=== PATIENT | male | born 1945 | race Two or more races ===

== ENCOUNTER 2016-11-02 19:36 | Emergency (ER) | payer MEDICARE, OTHER ==
[2016-11-02 19:48] VITALS: BP 113/84
--- NOTE | 2016-11-03 06:21 | ED ---
Fatou Simeon Nilda, scribed for Rolando Dumont MD on 11/03/16 at 0018 . Lower Extremity - HPI Summary HPI Summary: Pt is a 71 y.o M presenting to [facility] from [place] accompanied by family member with a chief complaint of left foot swelling that began 3 days ago. Symptoms are aggravated and alleviated by nothing. Pain severity rated as 0/10. Patient reports being able to ambulate. He denies left foot pain, malaise, abdominal pain, and LLE pain. 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 - History of Current Complaint Chief Complaint: EDExtremityLower Stated Complaint: LT FOOT SWOLLEN Time Seen by Provider: 11/02/16 23:55 Hx Obtained From: Patient Onset/Duration: Days - 3 Days Severity Currently: None Pain Intensity: 0 Pain Scale Used: 0-10 Numeric Timing: Constant, Lasting Days Location: Other - LLE Associated Signs And Symptoms: Positive: Swelling Aggravating Factor(s): Nothing Alleviating Factor(s): Nothing Able to Bear Weight: Yes - Allergies/Home Medications Allergies/Adverse Reactions: Allergies Allergy/AdvReac Type Severity Reaction Status Date / Time No Known Allergies Allergy Verified 11/02/16 19:44 PMH/Surg Hx/FS Hx/Imm Hx Endocrine/Hematology History: Reports: Hx Anticoagulant Therapy - baby ASA Denies: Hx Blood Disorders, Hx Blood Transfusions, Hx Bone Marrow Disease, Hx Diabetes, Hx Systemic Lupus Erythematosus, Hx Sickle Cell Disease, Hx Thyroid Disease, Hx Anemia, Hx Unexplained Bleeding, Other Endocrine/ Hematological Disorders Cardiovascular History: Reports: Hx Coronary Artery Disease, Hx Hypercholesterolemia, Hx Valvular Heart Disease, Other Cardiovascular Problems/ Disorders - Heart Valve repair since 2007 Denies: Hx Aneurysm, Hx Angina, Hx Angioplasty, Hx Auto Implanted Cardiovert Defib, Hx Cardiac Arrest, Hx Cardiomegaly, Hx Congenital Heart Disease, Hx Congestive Heart Failure, Hx Deep Vein Thrombosis, Hx Hypotension, Hx Hypertension, Hx Pacemaker/ICD, Hx Peripheral Vascular Disease, Hx Rheumatic Fever, Hx Syncope Respiratory History: Denies: Hx Asthma, Hx Chronic Bronchitis, Hx Chronic Obstructive Pulmonary Disease (COPD), Hx Cystic Fibrosis, Hx Lung Cancer, Hx Pleural Effusion, Hx Pneumonia, Hx Pulmonary Edema, Hx Pulmonary Embolism, Hx Seasonal Allergies, Hx Sleep Apnea, Other Respiratory Problems/Disorders GI History: Denies: Hx Ulcer, Other GI Disorders Musculoskeletal History: Denies: Hx Arthritis, Hx Back Problems, Hx Bursitis, Hx Congenital Bone Abnormalities, Hx Fibromyalgia, Hx Gout, Hx Orthopedic Injury, Hx Osteoporosis, Hx Scoliosis, Hx Tendonitis Sensory History: Reports: Hx Contacts or Glasses Denies: Hx Cataracts, Hx Eye Injury, Hx Eye Prosthesis, Hx Glaucoma, Hx Vision Problem, Hx Deafness, Hx Hearing Aid, Hx Hearing Problem, Other Sensory Impairments Opthamlomology History: Reports: Hx Contacts or Glasses Denies: Hx Cataracts, Hx Eye Injury, Hx Eye Prosthesis, Hx Glaucoma, Hx Vision Problem, Other Sensory Impairments Neurological History: Reports: Other Neuro Impairments/Disorders - L SIDED WEAKNESS DUE TO BRAIN INJURY Psychiatric History: Reports: Hx Depression Denies: Hx Anxiety, Hx Attention Deficit Hyperactivity Disorder, Hx Eating Disorder, Hx Panic Disorder, Hx Post Traumatic Stress Disorder, Hx Inpatient Treatment, Hx Community Mental Health Tx, Hx Schizophrenia, Hx Bipolar Disorder , Hx Suicide Attempt, Hx of Violent Episodes Against Others, Hx Substance Abuse , Other Psychiatric Issues/Disorders - Cancer History Hx Chemotherapy: No Hx Radiation Therapy: No - Surgical History Surgery Procedure, Year, and Place: Heart Valve repair 2007. Brain surgery 1990 ( FROM TRAUMATIC BRAIN INJURY). TONSILS & ADNOIDS - 1950 Hx Anesthesia Reactions: No - Immunization History Date of Tetanus Vaccine: 1 year ago Date of Influenza Vaccine: 2012 Infectious Disease History: No Infectious Disease History: Denies: Hx Clostridium Difficile, Hx Hepatitis, Hx Human Immunodeficiency Virus (HIV), Hx Shingles, Hx Tuberculosis, Traveled Outside the [place] in Last 30 Days - Family History Known Family History: Negative: Hypertension, Diabetes - Social History Alcohol Use: Rare Substance Use Type: Reports: None Smoking Status (MU): Former Smoker Review of Systems Positive: Other - negative: malaise Negative: Abdominal Pain Positive: Edema - left foot swollen, Other - left arm immobile and contracted; negative: left foot pain, LLE pain. All Other Systems Reviewed And Are Negative: Yes Physical Exam - Summary Physical Exam Summary: General: well-appearing, no pain distress Skin: warm, color reflects adequate perfusion, dry Head: normal Eyes: EOMI, ALEX ENT: normal Neck: supple, nontender Respiratory: CTA, breath sounds present Cardiovascular: RRR, dorsalis pedis pulses 2+ Abdomen: soft, nontender Bowel: present Musculoskeletal: Left arm flexed in contraction; FROM RUE and RLE; LLE effort against gravity and drift; (+) edema in left foot that is cold to touch. Neurological: normal, sensory/motor intact, A&O x3 Psychological: affect/mood appropriate Triage Information Reviewed: Yes Vital Signs On Initial Exam: Initial Vitals Temp Pulse Resp BP Pulse Ox 97.7 F 67 18 113/84 96 11/02/16 19:38 11/02/16 19:38 11/02/16 19:38 11/02/16 19:38 11/02/16 19:38 Vital Signs Reviewed: Yes - Stowell Coma Scale Coma Scale Total: 15 Diagnostics - Vital Signs Vital Signs Temp Pulse Resp BP Pulse Ox 11/02/16 19:38 97.7 F 67 18 113/84 96 - Laboratory Lab Statement: Any lab studies that have been ordered have been reviewed, and results considered in the medical decision making process. - Ultrasound No standard instances Ultrasound Interpretation: Positive (See Comments) Ultrasound Interpretation Completed By: Radiologist - Doppler Venous Study (LLE) : Diffuse atherosclerotic plaque without any definite stenosis. ED Physician reviewed report and agrees. Lower Extremity Course/Dx - Course Course Of Treatment: NO STENOSIS SEEN ON ARTERIAL STUDY. NO DVT REPORTED ON US SCREENING. 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 WHEN QUESTIONED, HE REPORTS THE LLE SWELLING HAS BEEN GOING ON FOR SOME TIME. HE DENIES ANY PAIN IN THE LLE. IT APPEARS TO BE VENOUS INSUFFICIENCY DUE TO NEUOGENIC CAUSE. THIS WAS ALL DISCUSSED WITH THE PATIENT AND HIS FRIEND. F/U PMD; RETURN IF WORSE. NO CRITICAL CARE TIME. - Diagnoses Provider Diagnoses: Leg edema, left - Physician Notifications Discussed Care Of Patient With: Reno Ta - Hospitalist Time Discussed With Above Provider: 00:57 Instructed by Provider To: MD Will See In ED - Discussed imaging results which show no evidence of DVT. Results show normal vasculature. Upon discussing with patient, swelling has been a problem for some time. Physcians believe issue may be neurogenic. There is good blood flow but slower vascular return. Patient experiencing no pain. Discharge - Discharge Plan Condition: Stable Disposition: HOME Patient Education Materials: Leg Edema (ED) Referrals: Norm Nichols MD [Primary Care Provider] - Additional Instructions: FOLLOW UP WITH YOUR DOCTOR. NO ARTERIAL OR VENOUS BLOCKAGE WAS SEEN. ELEVATE THE LEG WHEN POSSIBLE. INCREASE YOUR ACTIVITY/WALKING TO INCREASE BLOOD FLOW. TALK WITH YOU DOCTOR ABOUT COMPRESSION STOCKINGS. RETURN TO THE EMERGENCY DEPARTMENT FOR ANY WORSENING OF YOUR CONDITION; PAIN, INCREASED SWELLING OR QUESTIONS OR CONCERNS. The documentation as recorded by the Fatou jose Nilda accurately reflects the service I personally performed and the decisions made by me, Rolando Dumont MD.
--- NOTE | 2016-11-03 07:48 | RAD ---
INDICATION: Left lower extremity claudication. COMPARISON: None. TECHNIQUE: Chawla scale, color Doppler, and spectral analysis utilized to image the left lower extremity arteries. Flow velocities were determined at each visualized artery. REPORT: The left common femoral artery, proximal femoral profundus, superficial femoral artery, popliteal artery and infrapopliteal arteries exhibit patency. There is calcified atherosclerosis seen throughout the visualized arteries, becoming more severe in the infrapopliteal distribution. The arterial flow velocities and ratios of the femoral-popliteal arteries are within normal limits. There is no abrupt transition and velocities to indicate significant stenosis. There are no pathologically dilated arteries visualized. IMPRESSION: Sonographic findings are consistent with calcified atherosclerosis without identification of focal occlusion or pathologically elevated flow velocities indicating stenosis.
== END 2016-11-03 01:09 | disposition home or self-care (01) ==
LOC: ED 19:36
DX: R60.0 Localized edema (principal); Z79.01 Long term (current) use of anticoagulants; Z79.82 Long term (current) use of aspirin; Z86.79 Personal history of other diseases of the circulatory system; Z87.820 Personal history of traumatic brain injury; Z87.891 Personal history of nicotine dependence
CPT/HCPCS: 99282

== ENCOUNTER 2017-09-11 23:02 | Emergency (ER) | payer MEDICARE, OTHER ==
--- NOTE | 2017-09-11 23:59 | ED ---
Medical Screening - HPI Summary HPI Summary: Patient from assisted living received his roommates medications in addition to his own tonight at 10 PM. Patient was given nonprescribed meds of diazepam 5 mg , baclofen 40 mg, Zanaflex 6 mg tonight. Patient states he feels at baseline. Denies any symptoms or pain - History of Current Complaint Chief Complaint: EDGeneral Stated Complaint: MEDICATION ERROR Time Seen by Provider: 09/11/17 23:19 Associated Signs and Symptoms: Negative PMH/Surg Hx/FS Hx/Imm Hx Endocrine/Hematology History: Reports: Hx Anticoagulant Therapy - baby ASA Denies: Hx Blood Disorders, Hx Blood Transfusions, Hx Bone Marrow Disease, Hx Diabetes, Hx Systemic Lupus Erythematosus, Hx Sickle Cell Disease, Hx Thyroid Disease, Hx Anemia, Hx Unexplained Bleeding, Other Endocrine/ Hematological Disorders Cardiovascular History: Reports: Hx Coronary Artery Disease, Hx Hypercholesterolemia, Hx Valvular Heart Disease, Other Cardiovascular Problems/ Disorders - Heart Valve repair since 2007 Denies: Hx Aneurysm, Hx Angina, Hx Angioplasty, Hx Auto Implanted Cardiovert Defib, Hx Cardiac Arrest, Hx Cardiomegaly, Hx Congenital Heart Disease, Hx Congestive Heart Failure, Hx Deep Vein Thrombosis, Hx Hypotension, Hx Hypertension, Hx Pacemaker/ICD, Hx Peripheral Vascular Disease, Hx Rheumatic Fever, Hx Syncope Respiratory History: Denies: Hx Asthma, Hx Chronic Bronchitis, Hx Chronic Obstructive Pulmonary Disease (COPD), Hx Cystic Fibrosis, Hx Lung Cancer, Hx Pleural Effusion, Hx Pneumonia, Hx Pulmonary Edema, Hx Pulmonary Embolism, Hx Seasonal Allergies, Hx Sleep Apnea, Other Respiratory Problems/Disorders GI History: Denies: Hx Ulcer, Other GI Disorders Musculoskeletal History: Denies: Hx Arthritis, Hx Back Problems, Hx Bursitis, Hx Congenital Bone Abnormalities, Hx Fibromyalgia, Hx Gout, Hx Orthopedic Injury, Hx Osteoporosis, Hx Scoliosis, Hx Tendonitis Sensory History: Reports: Hx Contacts or Glasses Denies: Hx Cataracts, Hx Eye Injury, Hx Eye Prosthesis, Hx Glaucoma, Hx Vision Problem, Hx Deafness, Hx Hearing Aid, Hx Hearing Problem, Other Sensory Impairments Opthamlomology History: Reports: Hx Contacts or Glasses Denies: Hx Cataracts, Hx Eye Injury, Hx Eye Prosthesis, Hx Glaucoma, Hx Vision Problem, Other Sensory Impairments Neurological History: Reports: Other Neuro Impairments/Disorders - L SIDED WEAKNESS DUE TO BRAIN INJURY Psychiatric History: Reports: Hx Depression Denies: Hx Anxiety, Hx Attention Deficit Hyperactivity Disorder, Hx Eating Disorder, Hx Panic Disorder, Hx Post Traumatic Stress Disorder, Hx Inpatient Treatment, Hx Community Mental Health Tx, Hx Schizophrenia, Hx Bipolar Disorder , Hx Suicide Attempt, Hx of Violent Episodes Against Others, Hx Substance Abuse , Other Psychiatric Issues/Disorders - Cancer History Hx Chemotherapy: No Hx Radiation Therapy: No - Surgical History Surgery Procedure, Year, and Place: Heart Valve repair 2007. Brain surgery 1990 ( FROM TRAUMATIC BRAIN INJURY). TONSILS & ADNOIDS - 1950 Hx Anesthesia Reactions: No - Immunization History Date of Tetanus Vaccine: 1 year ago Date of Influenza Vaccine: 2012 Infectious Disease History: No Infectious Disease History: Denies: Hx Clostridium Difficile, Hx Hepatitis, Hx Human Immunodeficiency Virus (HIV), Hx Shingles, Hx Tuberculosis, Traveled Outside the [place] in Last 30 Days - Family History Known Family History: Negative: Hypertension, Diabetes - Social History Alcohol Use: Rare Substance Use Type: Reports: None Smoking Status (MU): Former Smoker Review of Systems Constitutional: Negative Eyes: Negative ENT: Negative Cardiovascular: Negative Respiratory: Negative Gastrointestinal: Negative Genitourinary: Negative Musculoskeletal: Negative Skin: Negative Neurological: Negative Psychological: Normal All Other Systems Reviewed And Are Negative: Yes Physical Exam - Summary Physical Exam Summary: Neuro exam normal. Patient alert and oriented. Vital signs at baseline per prior records Triage Information Reviewed: Yes Vital Signs On Initial Exam: Initial Vitals Temp Pulse Resp BP Pulse Ox 97.6 F 55 20 96/60 95 09/11/17 23:14 09/11/17 23:14 09/11/17 23:14 09/11/17 23:14 09/11/17 23:14 Vital Signs Reviewed: Yes Appearance: Positive: Well-Appearing Skin: Positive: Warm Head/Face: Positive: Normal Head/Face Inspection Eyes: Positive: Normal Neck: Positive: Supple Respiratory/Lung Sounds: Positive: Clear to Auscultation Cardiovascular: Positive: Normal Abdomen Description: Positive: Nontender Musculoskeletal: Positive: Normal Neurological: Positive: Normal Psychiatric: Positive: Normal AVPU Assessment: Alert - [place] Coma Scale Best Eye Response: 4 - Spontaneous Best Motor Response: 6 - Obeys Commands Best Verbal Response: 5 - Oriented Coma Scale Total: 15 Diagnostics - Vital Signs Vital Signs Temp Pulse Resp BP Pulse Ox 09/11/17 23:14 97.6 F 55 20 96/60 95 - Laboratory Result Diagrams: 09/11/17 23:49 Lab Statement: Any lab studies that have been ordered have been reviewed, and results considered in the medical decision making process. - EKG 1 Cardiac Rate: Bradycardia EKG Rhythm: Sinus Bradycardia ST Segment: Non-Specific - T-wave inversion leads 3, V4, V5, V6. EKG Interpretation: supraventricular bigeminy, right bundle branch block, T- wave inversion EKG Comparison: Other - Change from EKG 2016 Course/Dx - Course Course Of Treatment: Patient from assisted living received his roommates medications in addition to his own tonight at 10 PM. Patient was given nonprescribed meds of diazepam 5 mg, baclofen 40 mg, Zanaflex 6 mg tonight. Patient states he feels at baseline. Denies any symptoms or pain. Neuro exam normal. Patient alert and oriented. HR up and down. Other vital signs at baseline per prior records. Patient observed for [address] patient with Dr. Quinteros recommends discharge home to assisted living at this time. - Diagnoses Provider Diagnoses: Medication administered in error Discharge - Sign-Out/Discharge Documenting (check all that apply): Patient Departure - Discharge Plan Condition: Stable [facility]position[facility] Referrals: Kaia Vela MD [Primary Care Provider] - Additional Instructions: Follow-up with primary care. Return to the ED for any new or worsening symptoms - Billing Disposition and Condition Condition: STABLE Disposition: [facility]
[2017-09-12 00:18] LABS: EGFR Non-African American 97.3 (>60)
[2017-09-12 02:58] VITALS: BP 96/53
== END 2017-09-12 03:00 ==
LOC: ED 23:02
DX: T42.4X1A Poisoning by benzodiazepines, accidental (unintentional), initial encounter (principal); T42.8X1A Poisoning by antiparkinsonism drugs and other central muscle-tone depressants, accidental (unintentional), initial encounter; Y92.9 Unspecified place or not applicable; R00.1 Bradycardia, unspecified; R00.8 Other abnormalities of heart beat; I45.10 Unspecified right bundle-branch block; Z79.82 Long term (current) use of aspirin; Z87.891 Personal history of nicotine dependence
CPT/HCPCS: 36415; 80053; 93005; 99284

== ENCOUNTER 2019-10-10 11:14 | Inpatient (IN) ==
[2019-10-10] MEDS ORDERED: Cefepime 2 GM in NS 0.9% 50 ML 50 ML IVPB ONE (11:16)
[2019-10-10] MEDS ORDERED: Levofloxacin 750 MG IVPREMIX 750 MG/150 ML BAG IVPB ONE (11:16)
[2019-10-10] MEDS ORDERED: Cefepime 2 GM in Dextrose 2 GM/50 ML BAG IV ONE (11:31)
[2019-10-10 11:46] LABS: ABS Lymphocytes 1.1 10^3/ul (1.0-4.8); ABS Neutrophils 6.8 10^3/ul (1.5-7.7); Eosinophil % 0.1 %; Hematocrit 39 % (42-52); Hemoglobin 13.1 g/dL (14.0-18.0); Lymphocyte % 12.9 %; Mean Corpuscular HGB Conc 34 g/dL (31-36); Mean Corpuscular Hemoglobin 32 pg (27-31); Mean Corpuscular Volume 94 fL (80-94); Mean Platelet Volume 7.6 fL (7.4-10.4); Platelet Count 157 10^3/uL (150-450); Red Blood Count 4.16 10^6 /uL (4.18-5.48); Red Cell Distribution Width 15 % (10-15); White Blood Count 8.9 10^3/uL (3.5-10.8)
[2019-10-10 11:59] LABS: Activated Partial Thrombo Time 30.5 seconds (26.0-38.0); INR 1.16 (0.82-1.09)
[2019-10-10 12:04] LABS: Albumin/Globulin Ratio 1.3 (1-3); C Reactive Protein 231.63 mg/L (<8.01); Calcium 9.7 mg/dL (8.6-10.3); EGFR African American 87.9 (>60); EGFR Non-African American 72.6 (>60); Globulin 3.2 g/dL (2-4); Potassium 4.2 mmol/L (3.5-5.0); Total Bilirubin 0.8 mg/dL (0.2-1.0); Total Protein 7.2 g/dL (6.4-8.9)
[2019-10-10] MEDS ORDERED: Iodixanol (CONTRAST) 320 MG/ML 100 ML SDV IV ONE (12:12)
[2019-10-10 14:29] LABS: Urine Appearance Clear; Urine Bilirubin Negative (Negative); Urine Blood Negative (Negative); Urine Color Yellow; Urine Glucose Negative (Negative); Urine Ketones Trace (Negative); Urine Nitrite Negative (Negative); Urine Protein Negative (Negative); Urine Specific Gravity 1.041 (1.010-1.030); Urine Urobilinogen Positive (Negative)
[2019-10-10] MEDS ORDERED: Senna TAB 8.6 mg TAB PO PRN (15:02)
[2019-10-10] MEDS ORDERED: Ondansetron 4 mg VIAL 2 MG/ML 2 ml VIAL IV PRN (15:02)
[2019-10-10] MEDS ORDERED: metroNIDAZOLE IV 500 MG/100ML 500 MG/100 ML BAG IVPB SCH (16:00)
[2019-10-10] MEDS: NS 0.9% 1000 ml BAG 1,000 ML IV SCH (16:43)
[2019-10-10] MEDS: Enoxaparin 40 MG/0.4 ML SYR SUBCUT SCH (16:51)
[2019-10-10] MEDS ORDERED: Zosyn per Pharmacy NOTE FOLLOW UP SCH (17:00)
[2019-10-10] MEDS: Carbidopa/Levodop 25/100 MG TAB PO SCH (22:19)
[2019-10-10] MEDS ORDERED: cefTRIAXone 1 gm/50 mL NS BAG 1 GM/50 ML BAG IVPB SCH (23:00)
[2019-10-11] MEDS ORDERED: LORazepam 2 mg VIAL 1 ml IV PUSH ONE (04:11)
[2019-10-11] MEDS ORDERED: Lorazepam PYXIS KEY PRN (04:11)
[2019-10-11] MEDS: NS 0.9% 1000 ml BAG 1,000 ML IV SCH (06:23)
[2019-10-11 07:41] LABS: Hematocrit 36 % (42-52); Hemoglobin 12.2 g/dL (14.0-18.0); Mean Corpuscular HGB Conc 34 g/dL (31-36); Mean Corpuscular Hemoglobin 32 pg (27-31); Mean Corpuscular Volume 94 fL (80-94); Red Cell Distribution Width 15 % (10-15)
[2019-10-11] MEDS ORDERED: Piperacillin/Tazobac ADVAN 3.375 GM in NS 0.9% 100 ml BAG 100 ML IVPB ONE (08:00)
[2019-10-11 08:10] LABS: CO2 Carbon Dioxide 21 mmol/L (22-32); Calcium 8.8 mg/dL (8.6-10.3); Chloride 107 mmol/L (101-111); Sodium 138 mmol/L (135-145)
[2019-10-11 08:16] LABS: BUN/Creatinine Ratio 31.1 (8-20); Blood Urea Nitrogen 28 mg/dL (6-24); EGFR African American 99.3 (>60); Glucose 76 mg/dL (70-100)
[2019-10-11 08:23] LABS: Anion Gap 10 mmol/L (2-11)
[2019-10-11 08:24] LABS: Platelet Count Platelets clumped. 10^3/uL (150-450)
[2019-10-11 08:27] LABS: ABS Eosinophils 0.1 10^3/ul (0-0.6); ABS Lymphocytes 1.7 10^3/ul (1.0-4.8); ABS Monocytes 1.4 10^3/ul (0-0.8); ABS Neutrophils 5.5 10^3/ul (1.5-7.7); Eosinophil % 1.5 %; Lymphocyte % 19.6 %; Nucleated Red Blood Cells % 0.1; White Blood Count 8.8 10^3/uL (3.5-10.8)
[2019-10-11] MEDS: ZOSYN 3.375 GM Q8H per EXTENDED INFUSION IV SCH ×2 (11:58→19:22)
[2019-10-11] MEDS: Carbidopa/Levodop 25/100 MG TAB PO SCH ×3 (11:58→21:20)
[2019-10-11] MEDS: Multivitamins/Minerals TAB PO SCH (11:58)
[2019-10-11] MEDS: Aspirin EC 81 mg TAB.EC (enteric coated) PO SCH (11:58)
[2019-10-11 15:41] LABS: C Reactive Protein 185.09 mg/L (<8.01)
[2019-10-11] MEDS: Enoxaparin 40 MG/0.4 ML SYR SUBCUT SCH (16:51)
[2019-10-12] MEDS: NS 0.9% 1000 ml BAG 1,000 ML IV SCH (03:13)
[2019-10-12] MEDS: ZOSYN 3.375 GM Q8H per EXTENDED INFUSION IV SCH ×2 (03:38→12:25)
[2019-10-12 06:20] LABS: ABS Eosinophils 0.2 10^3/ul (0-0.6); ABS Lymphocytes 1.2 10^3/ul (1.0-4.8); ABS Monocytes 0.7 10^3/ul (0-0.8); ABS Neutrophils 3.6 10^3/ul (1.5-7.7); Eosinophil % 3.6 %; Hematocrit 36 % (42-52); Hemoglobin 12.4 g/dL (14.0-18.0); Lymphocyte % 20.9 %; Mean Corpuscular HGB Conc 34 g/dL (31-36); Mean Corpuscular Hemoglobin 32 pg (27-31); Mean Corpuscular Volume 92 fL (80-94); Mean Platelet Volume 7.7 fL (7.4-10.4); Nucleated Red Blood Cells % 0.1; Platelet Count 175 10^3/uL (150-450); Red Blood Count 3.92 10^6 /uL (4.18-5.48); Red Cell Distribution Width 14 % (10-15); White Blood Count 5.8 10^3/uL (3.5-10.8)
[2019-10-12] MEDS: Aspirin EC 81 mg TAB.EC (enteric coated) PO SCH (08:56)
[2019-10-12] MEDS: Carbidopa/Levodop 25/100 MG TAB PO SCH ×3 (08:56→20:31)
[2019-10-12] MEDS: Multivitamins/Minerals TAB PO SCH (08:56)
[2019-10-12] MEDS: Enoxaparin 40 MG/0.4 ML SYR SUBCUT SCH (17:40)
[2019-10-12] MEDS: Amoxicillin/Clavul 500/125 TAB (Augmentin 500 mg tab) PO SCH (20:30)
[2019-10-13] MEDS: Aspirin EC 81 mg TAB.EC (enteric coated) PO SCH (09:20)
[2019-10-13] MEDS: Amoxicillin/Clavul 500/125 TAB (Augmentin 500 mg tab) PO SCH (09:20)
[2019-10-13] MEDS: Carbidopa/Levodop 25/100 MG TAB PO SCH (09:20)
[2019-10-13] MEDS: Multivitamins/Minerals TAB PO SCH (09:21)
[2019-10-13 12:01] VITALS: BP 109/55
== END 2019-10-13 14:20 | disposition home or self-care (01) | DRG 177 ==
LOC: ED 11:14 → MED 15:02
PROVIDERS: ADMIT Internal Medicine; ATTEND Internal Medicine

== ENCOUNTER 2020-02-21 17:32 | Inpatient (IN) ==
[2020-02-21] MEDS ORDERED: NS 0.9% 1000 ml BAG 1,000 ML IV ONE (18:15)
[2020-02-21 18:20] LABS: Urine Appearance Cloudy; Urine Bilirubin Negative (Negative); Urine Blood Negative (Negative); Urine Color Amber; Urine Glucose Negative (Negative); Urine Ketones Trace (Negative); Urine Nitrite Negative (Negative); Urine Protein Negative (Negative); Urine Specific Gravity 1.021 (1.010-1.030); Urine Urobilinogen Positive (Negative)
[2020-02-21 18:47] LABS: ABS Eosinophils 0.1 10^3/ul (0-0.6); ABS Lymphocytes 0.8 10^3/ul (1.0-4.8); ABS Monocytes 0.4 10^3/ul (0-0.8); ABS Neutrophils 2.7 10^3/ul (1.5-7.7); Eosinophil % 2.2 %; Hematocrit 37 % (42-52); Hemoglobin 12.4 g/dL (14.0-18.0); Lymphocyte % 20.4 %; Mean Corpuscular HGB Conc 33 g/dL (31-36); Mean Corpuscular Hemoglobin 32 pg (27-31); Mean Corpuscular Volume 95 fL (80-94); Red Blood Count 3.92 10^6 /uL (4.18-5.48); Red Cell Distribution Width 17 % (10-15); White Blood Count 3.9 10^3/uL (3.5-10.8)
[2020-02-21] MEDS ORDERED: Vancomycin 1,000 MG in NS 0.9% 250 ml 250 ML IVPB ONE (18:51)
[2020-02-21 18:52] LABS: INR 1.08 (0.82-1.09)
[2020-02-21] MEDS ORDERED: Lactated Ringers 1000 ml BAG 1,000 ML IV SCH (19:00)
[2020-02-21] MEDS ORDERED: Vancomycin per Pharmacy 1 EA NOTE FOLLOW UP SCH (19:00)
[2020-02-21 19:07] LABS: Albumin 3.5 g/dL (3.2-5.2); Albumin/Globulin Ratio 1.5 (1-3); BUN/Creatinine Ratio 47.2 (8-20); EGFR African American 128.1 (>60); EGFR Non-African American 105.9 (>60); Globulin 2.4 g/dL (2-4); Total Bilirubin 0.4 mg/dL (0.2-1.0); Total Protein 5.9 g/dL (6.4-8.9)
[2020-02-21] MEDS ORDERED: Piperacillin/Tazobac ADVAN 3.375 GM in NS 0.9% 100 ml BAG 100 ML IV ONE (19:10)
[2020-02-21 19:50] LABS: Mean Platelet Volume 8.6 fL (7.4-10.4); Platelet Count 58 10^3/uL (150-450)
[2020-02-21] MEDS ORDERED: Zosyn per Pharmacy NOTE FOLLOW UP SCH (20:00)
[2020-02-21] MEDS ORDERED: Polyethylene Glycol 3350 17 GM PACKET PO PRN (20:25)
[2020-02-21 20:46] LABS: TSH Ultra Thyroid Stim Horm 4.22 mcIU/mL (0.34-5.60)
[2020-02-21] MEDS: Carbidopa/Levodop 25/100 MG TAB PO SCH (21:02)
[2020-02-21] MEDS: ZOSYN 3.375 GM Q8H per EXTENDED INFUSION IV SCH (23:34)
[2020-02-22 04:26] LABS: ABS Lymphocytes 0.7 10^3/ul (1.0-4.8); ABS Monocytes 0.3 10^3/ul (0-0.8); ABS Neutrophils 3.5 10^3/ul (1.5-7.7); Eosinophil % 0.8 %; Hematocrit 36 % (42-52); Hemoglobin 12.2 g/dL (14.0-18.0); Lymphocyte % 15.6 %; Mean Corpuscular HGB Conc 34 g/dL (31-36); Mean Corpuscular Hemoglobin 32 pg (27-31); Mean Corpuscular Volume 94 fL (80-94); Nucleated Red Blood Cells % 0.1; Platelet Count 70 10^3/uL (150-450); Red Blood Count 3.86 10^6 /uL (4.18-5.48); Red Cell Distribution Width 16 % (10-15); White Blood Count 4.5 10^3/uL (3.5-10.8)
[2020-02-22 04:32] LABS: BUN/Creatinine Ratio 36.8 (8-20); Calcium 9.1 mg/dL (8.6-10.3); EGFR Non-African American 85.1 (>60); Potassium 4.4 mmol/L (3.5-5.0)
[2020-02-22] MEDS: ZOSYN 3.375 GM Q8H per EXTENDED INFUSION IV SCH ×3 (08:02→23:34)
[2020-02-22] MEDS: Vancomycin 1000 MG in NS 0.9% 250 ML IVPB SCH ×2 (08:05→21:22)
[2020-02-22] MEDS: Lactated Ringers 1000 ml BAG 1,000 ML IV SCH ×3 (08:08→17:10)
[2020-02-22 08:16] LABS: Magnesium 1.7 mg/dL (1.9-2.7); Phosphorus 2.2 mg/dL (2.5-5.0)
[2020-02-22] MEDS ORDERED: Donepezil HCL 10 mg TAB (NF) PO SCH (09:00)
[2020-02-22] MEDS: Carbidopa/Levodop 25/100 MG TAB PO SCH ×3 (09:25→21:22)
[2020-02-22] MEDS: Enoxaparin 40 MG/0.4 ML SYR SUBCUT SCH (11:53)
[2020-02-23 05:40] LABS: EGFR African American 83.8 (>60); EGFR Non-African American 69.3 (>60)
[2020-02-23] MEDS: ZOSYN 3.375 GM Q8H per EXTENDED INFUSION IV SCH ×3 (07:20→23:33)
[2020-02-23] MEDS ORDERED: Vancomycin Trough Check NOTE FOLLOW UP ONE (07:30)
[2020-02-23] MEDS ORDERED: Magnesium Sulf 4 GM/100 ML IV 4,000 MG/100 ML BAG IVPB ONE (07:57)
[2020-02-23 08:19] LABS: Magnesium 1.6 mg/dL (1.9-2.7)
[2020-02-23] MEDS: Vancomycin 1000 MG in NS 0.9% 250 ML IVPB SCH (08:21)
[2020-02-23 08:33] LABS: C Reactive Protein 23.31 mg/L (<8.01)
[2020-02-23] MEDS: Enoxaparin 40 MG/0.4 ML SYR SUBCUT SCH (09:06)
[2020-02-23] MEDS: Carbidopa/Levodop 25/100 MG TAB PO SCH ×3 (09:09→20:20)
[2020-02-23] MEDS: Lactated Ringers 1000 ml BAG 1,000 ML IV SCH (09:59)
[2020-02-23 20:51] LABS: B garinii/B afzelii PCR Negative (Negative); B mayonii PCR Negative (Negative)
[2020-02-24 05:24] LABS: ABS Eosinophils 0.1 10^3/ul (0-0.6); ABS Monocytes 0.7 10^3/ul (0-0.8); ABS Neutrophils 4.7 10^3/ul (1.5-7.7); Eosinophil % 1.4 %; Hematocrit 34 % (42-52); Hemoglobin 11.3 g/dL (14.0-18.0); Lymphocyte % 15.1 %; Mean Corpuscular HGB Conc 33 g/dL (31-36); Mean Corpuscular Hemoglobin 32 pg (27-31); Mean Corpuscular Volume 95 fL (80-94); Mean Platelet Volume 8.5 fL (7.4-10.4); Platelet Count 64 10^3/uL (150-450); Red Blood Count 3.54 10^6 /uL (4.18-5.48); Red Cell Distribution Width 16 % (10-15); White Blood Count 6.5 10^3/uL (3.5-10.8)
[2020-02-24 05:34] LABS: BUN/Creatinine Ratio 23.9 (8-20); Calcium 8.6 mg/dL (8.6-10.3); EGFR African American 96.5 (>60); EGFR Non-African American 79.8 (>60); Magnesium 1.6 mg/dL (1.9-2.7); Potassium 4.1 mmol/L (3.5-5.0)
[2020-02-24] MEDS ORDERED: Magnesium Sulfate 2 gm BAG 2 GM/50 ML BAG IVPB ONE (07:37)
[2020-02-24] MEDS ORDERED: Magnesium Sulf 4 GM/100 ML IV 4,000 MG/100 ML BAG IVPB ONE (08:33)
[2020-02-24] MEDS: ZOSYN 3.375 GM Q8H per EXTENDED INFUSION IV SCH ×3 (09:11→23:08)
[2020-02-24] MEDS: Lactated Ringers 1000 ml BAG 1,000 ML IV SCH (09:11)
[2020-02-24] MEDS: Enoxaparin 40 MG/0.4 ML SYR SUBCUT SCH (09:55)
[2020-02-24] MEDS: Carbidopa/Levodop 25/100 MG TAB PO SCH ×3 (09:56→20:48)
[2020-02-24] MEDS ORDERED: Lactated Ringers 1000 ml BAG 1,000 ML IV SCH (15:43)
[2020-02-24] MEDS ORDERED: Dextrose 50% Syringe 50 ml 25 GM/50 ML SYRINGE IV PUSH PRN (16:30)
[2020-02-24] MEDS ORDERED: Dextrose 50% Syringe 50 ml 25 GM/50 ML SYRINGE ONE (16:43)
[2020-02-24] MEDS ORDERED: D5LR 1000 ml BAG 1,000 ML IV SCH (17:00)
[2020-02-25 05:38] LABS: ABS Eosinophils 0.1 10^3/ul (0-0.6); ABS Lymphocytes 0.8 10^3/ul (1.0-4.8); ABS Monocytes 0.7 10^3/ul (0-0.8); ABS Neutrophils 3.5 10^3/ul (1.5-7.7); Eosinophil % 2.7 %; Hematocrit 37 % (42-52); Hemoglobin 12.5 g/dL (14.0-18.0); Lymphocyte % 15.9 %; Mean Corpuscular HGB Conc 34 g/dL (31-36); Mean Corpuscular Hemoglobin 32 pg (27-31); Mean Corpuscular Volume 95 fL (80-94); Mean Platelet Volume 8.7 fL (7.4-10.4); Nucleated Red Blood Cells % 0.1; Platelet Count 64 10^3/uL (150-450); Red Blood Count 3.92 10^6 /uL (4.18-5.48); Red Cell Distribution Width 16 % (10-15); White Blood Count 5.2 10^3/uL (3.5-10.8)
[2020-02-25 05:42] LABS: Albumin 3.6 g/dL (3.2-5.2); Albumin/Globulin Ratio 1.2 (1-3); BUN/Creatinine Ratio 18.7 (8-20); Calcium 8.9 mg/dL (8.6-10.3); EGFR African American 97.8 (>60); EGFR Non-African American 80.8 (>60); Globulin 3.1 g/dL (2-4); Magnesium 2.1 mg/dL (1.9-2.7); Potassium 4.4 mmol/L (3.5-5.0); Total Bilirubin 0.7 mg/dL (0.2-1.0); Total Protein 6.7 g/dL (6.4-8.9)
[2020-02-25] MEDS: ZOSYN 3.375 GM Q8H per EXTENDED INFUSION IV SCH ×2 (08:03→16:46)
[2020-02-25] MEDS: Carbidopa/Levodop 25/100 MG TAB PO SCH ×3 (09:43→20:36)
[2020-02-25] MEDS: Enoxaparin 40 MG/0.4 ML SYR SUBCUT SCH (09:44)
[2020-02-25] MEDS: D5NS 0.9% 1000 ml BAG 1,000 ML IV SCH ×2 (13:10→23:21)
[2020-02-25] MEDS ORDERED: cefTRIAXone 1 gm/50 mL NS BAG 1 GM/50 ML BAG IVPB SCH (20:00)
[2020-02-26 07:17] LABS: ABS Eosinophils 0.2 10^3/ul (0-0.6); ABS Lymphocytes 0.9 10^3/ul (1.0-4.8); ABS Monocytes 0.5 10^3/ul (0-0.8); ABS Neutrophils 3.4 10^3/ul (1.5-7.7); Eosinophil % 3.4 %; Hematocrit 32 % (42-52); Hemoglobin 10.8 g/dL (14.0-18.0); Lymphocyte % 18.3 %; Mean Corpuscular HGB Conc 34 g/dL (31-36); Mean Corpuscular Hemoglobin 32 pg (27-31); Mean Corpuscular Volume 95 fL (80-94); Mean Platelet Volume 8.5 fL (7.4-10.4); Platelet Count 73 10^3/uL (150-450); Red Blood Count 3.36 10^6 /uL (4.18-5.48); Red Cell Distribution Width 17 % (10-15); White Blood Count 5.1 10^3/uL (3.5-10.8)
[2020-02-26 07:22] LABS: BUN/Creatinine Ratio 15.6 (8-20); C Reactive Protein 33.4 mg/L (<8.01); Calcium 8.4 mg/dL (8.6-10.3); EGFR African American 118.5 (>60); Potassium 3.9 mmol/L (3.5-5.0)
[2020-02-26] MEDS: Enoxaparin 40 MG/0.4 ML SYR SUBCUT SCH (09:35)
[2020-02-26] MEDS: Carbidopa/Levodop 25/100 MG TAB PO SCH ×3 (09:41→21:09)
[2020-02-26] MEDS: D5NS 0.9% 1000 ml BAG 1,000 ML IV SCH (16:56)
[2020-02-27 00:43] LABS: IgG Immunoblot Negative (Negative); IgM Immunoblot Negative (Negative)
[2020-02-27] MEDS: D5NS 0.9% 1000 ml BAG 1,000 ML IV SCH ×2 (07:08→22:48)
[2020-02-27] MEDS: Carbidopa/Levodop 25/100 MG TAB PO SCH ×3 (07:56→22:25)
[2020-02-27] MEDS: Enoxaparin 40 MG/0.4 ML SYR SUBCUT SCH (08:48)
[2020-02-27 09:26] LABS: ABS Eosinophils 0.2 10^3/ul (0-0.6); ABS Lymphocytes 0.9 10^3/ul (1.0-4.8); ABS Monocytes 0.7 10^3/ul (0-0.8); ABS Neutrophils 3.8 10^3/ul (1.5-7.7); Eosinophil % 3.7 %; Hematocrit 35 % (42-52); Hemoglobin 11.6 g/dL (14.0-18.0); Lymphocyte % 15.7 %; Mean Corpuscular HGB Conc 33 g/dL (31-36); Mean Corpuscular Hemoglobin 32 pg (27-31); Mean Corpuscular Volume 95 fL (80-94); Mean Platelet Volume 8.6 fL (7.4-10.4); Platelet Count 109 10^3/uL (150-450); Red Blood Count 3.65 10^6 /uL (4.18-5.48); Red Cell Distribution Width 16 % (10-15); White Blood Count 5.6 10^3/uL (3.5-10.8)
[2020-02-27] MEDS ORDERED: Lorazepam PYXIS KEY PRN (14:54)
[2020-02-27] MEDS: LORazepam 2 mg VIAL 1 ml ONE ×2 (14:56)
[2020-02-27] MEDS ORDERED: LORazepam 2 mg VIAL 1 ml IV PUSH ONE (15:00)
[2020-02-28 06:01] LABS: Urine Appearance Cloudy; Urine Bilirubin Negative (Negative); Urine Blood 2+ (Negative); Urine Color Yellow; Urine Glucose Negative (Negative); Urine Ketones Negative (Negative); Urine Nitrite Negative (Negative); Urine Protein Negative (Negative); Urine Urobilinogen Negative (Negative)
[2020-02-28 06:05] LABS: Urine Bacteria Absent (Absent); Urine Red Blood Cell 3+(>10/hpf) (Absent); Urine White Blood Cell 1+(6-10/hpf) (Absent)
[2020-02-28] MEDS: D5NS 0.9% 1000 ml BAG 1,000 ML IV SCH ×2 (09:46→22:43)
[2020-02-28] MEDS: Carbidopa/Levodop 25/100 MG TAB PO SCH ×3 (09:51→23:12)
[2020-02-28] MEDS: Enoxaparin 40 MG/0.4 ML SYR SUBCUT SCH (09:55)
[2020-02-29 00:13] LABS: Anaplasma phagocytophilum Negative (Negative); B. miyamotoi PCR, B Negative (Negative); Babesia divergens/MO-1 Negative (Negative); Babesia ducani Negative (Negative); Ehrlichia chaffeensis Negative (Negative); Ehrlichia ewingii/canis Negative (Negative); Ehrlichia muris eauclairensis Negative (Negative)
[2020-02-29] MEDS ORDERED: Influenza VAC *QUAD* 2020-21* 0.5 ML SYRINGE IM ONE (09:00)
[2020-02-29] MEDS: Carbidopa/Levodop 25/100 MG TAB PO SCH ×2 (09:57→13:30)
[2020-02-29] MEDS: Enoxaparin 40 MG/0.4 ML SYR SUBCUT SCH (09:58)
[2020-02-29 11:31] VITALS: BP 143/63
[2020-02-29] MEDS: D5NS 0.9% 1000 ml BAG 1,000 ML IV SCH (11:50)
== END 2020-02-29 11:48 | DRG 92 ==
LOC: ED 17:32 → ICU 18:32 → MEDTELE 02-22 09:30
PROVIDERS: ADMIT Internal Medicine; ATTEND Internal Medicine